=== PATIENT | male | born 1950 | race Caucasian/White ===

== ENCOUNTER 2024-07-07 08:31 | Outpatient (CLI) | payer MEDICARE, OTHER | END 2024-07-07 08:32 | disposition home or self-care (01) | LOC: BICCT 08:31 | PROVIDERS: ATTEND Registered Nurse | DX: K40.90 Unilateral inguinal hernia, without obstruction or gangrene, not specified as recurrent (principal); R10.84 Generalized abdominal pain; K76.0 Fatty (change of) liver, not elsewhere classified | CPT/HCPCS: 36415; 74177; 82565 ==

== ENCOUNTER 2025-01-26 14:33 | Outpatient (CLI) | payer MEDICARE, OTHER | END 2025-01-26 14:34 | disposition home or self-care (01) | LOC: BICULT 14:33 | PROVIDERS: ATTEND Surgery | DX: N43.3 Hydrocele, unspecified (principal); N50.3 Cyst of epididymis | CPT/HCPCS: 76870; 93976 ==